=== PATIENT | male | born 1980 | race Caucasian/White ===

== ENCOUNTER 2017-12-04 10:42 | Emergency (ER) | payer SELFPAY ==
[2017-12-04] MEDS ORDERED: ORPHENADRINE CITRATE 30 MG/ML VIAL IM ONE (11:12)
[2017-12-04] MEDS ORDERED: KETOROLAC TROMETHAMINE 30 MG/ML VIAL IM ONE (11:12)
[2017-12-04] MEDS ORDERED: predniSONE 20 MG TABLET PO ONE (11:12)
[2017-12-04] MEDS ORDERED: MORPHINE SULFATE 4 MG/ML SYRG IM ONE (11:12)
[2017-12-04] MEDS ORDERED: KETOROLAC TROMETHAMINE 30 MG/ML VIAL ONE (11:16)
[2017-12-04] MEDS ORDERED: MORPHINE SULFATE 4 MG/ML SYRG ONE (11:16)
[2017-12-04] MEDS ORDERED: ORPHENADRINE CITRATE 30 MG/ML VIAL ONE (11:17)
[2017-12-04] MEDS ORDERED: predniSONE 20 MG TABLET ONE (11:17)
--- NOTE | 2017-12-04 12:22 | ERNOTE ---
Back Pain ER HPI Date of Service: 12/04/17 Presenting Symptoms: hx chronic back pain Time Seen by Provider: 12/04/17 11:02 Source: patient Exam Limitations: no limitations Immunizations: IMMUNIZATION HX Immunizations Up to Date Yes History of Influenza Vaccine No Hx Pneumococcal Vaccination No Allergies/Adverse Reactions: Allergies No Known Allergies Allergy (Unverified 12/04/17 10:59) Home Medications: HOME MEDICATIONS Cyclobenzaprine HCl [Flexeril] 10 mg PO TID PRN #20 tab 12/04/17 [Last Taken Unknown] HYDROcodone/ACETAMINOPHEN [[place] 5-325] 1 tab PO Q8H PRN #12 tab 12/04/17 [Last Taken Unknown] Prednisone 50 mg PO DAILY #4 tablet 12/04/17 [Last Taken Unknown] Narrative: Patient presents to the ED for low back pain. He relates years of low back pain and has had surgery in the past. Last MRI 2007. He relates left back pain that radiates down his right leg to the knee. This is not new, he has had this Sx before. No acute focal N/T/W. gets some occasional tingling for years , nothign acute. No loss of bowel or bladder control. Pain has been exacerbated for 4 days since carrying a 300# piece down stairs. No fall or direct trauma but he relates this as the initiating event worsening his chronic Sx. Pain can be severe. Aching. Worse with movement and bending Timing: Reports: constant Quality/Severity: Reports: severe, aching Location of pain: Reports: other - right low back Activities at Onset: Reports: other - lifting Recent Injury?: Reports: yes Possible Precipitating Factor: Reports: lifting Modifying Factors - (Improves): Reports: other - rest Modifying Factors - (Worsens): Reports: movement to right, movement to left, movement flexion Associated Symptoms: Denies: fever/chills, constipation/incontinence, nausea/ vomiting, problems urinating, difficulty walking, lightheadedness, numbess/ weakness in legs Prior Treament: Denies: recently seen Review of Systems - Review of Systems Constitutional: Absent: fever Respiratory: Absent: shortness of breath Cardiology: Absent: chest pain Gastrointestinal/Abdominal: Absent: abdominal pain Genitourinary: Absent: frequency, pain, dysuria, hematuria Musculoskeletal: Present: See HPI Skin: Absent: rash Neurological: Absent: weakness, tingling - Patient's Past Medical History Patient History - Medical: No pertinent hx Patient History - Cardiac/Respiratory: No pertinent hx Patient History - Cancer: No Hx of Cancer Patient History - Surgical Procedures: Back Surgery Patient History - Other: None - Social History Living Situations: home Abuse History: No History of abuse Psych History: No pertinent hx Smoking Status: Current every day smoker Have you smoked in the past 12 months: Yes Do you dip or chew tobacco: No Alcohol Use: sober Drug Use: none - Immunizations Immunizations Up to Date: Yes Hx Pneumococcal Vaccination: No History of Influenza Vaccine: No Physical Exam - Physical Exam General Appearance: Present: alert, no apparent distress Head Exam: Present: normal inspection, no evidence of injury Eye Exam: Normal inspection: bilateral, PERRL: bilateral Ears, Nose, Throat: Present: normal ENT inspection Neck: Present: normal inspection Respiratory: Present: no respiratory distress Cardiovascular/Chest: Present: regular rate, rhythm Gastrointestinal/Abdominal: Present: normal bowel sounds, nontender, soft Back Exam: Present: other - Muscular tenderness, significant right low back muscualture. No bone or midline tenderness. No other bone tendenress. Absent : CVA tenderness (R), CVA tenderness (L) Extremity Exam: Present: normal inspection, normal range of motion Neurological Exam: Present: alert, normal mood/affect, no motor/sensory deficits , other - Full LE strength. Can stand on toes and heels. Patellar tendon reflexes equal and symmetric. No motor or sensory deficits. No cauda-equina syndrome clinically. Gait stable. Skin Exam: Present: normal color, warm/dry ED Progress - Vital Signs Patient's Vital Signs:: I have reviewed the patient's vital signs. Vital Signs: Vital Signs 12/04/17 12/04/17 12/04/17 10:56 11:22 11:50 Temperature 36.9 C Pulse Rate 77 80 70 Respiratory 15 Rate Blood Pressure 141/77 96/75 115/77 O2 Sat by Pulse 100 98 96 Oximetry - Progress/Reassessment Chief Complaint: Back Pain Progress Note-Subjective: 12/04/17 12:16 Exacerbation of chronic LBP. Hx of same radiculopathy. nothing to suggest acute neuro deficits, cauda equina syndrome or infectious process. i do not fee imaging indicated at this point. I discussed warning signs and reasons to return as well as the need for close f/u. Departure Clinical Impression: Low back pain - Departure Disposition: Home self-care Condition: Stable Instructions: Back Pain, Adult, [id number] Additional Instructions: Rest. Fluids. No driving with pain medications. You need to follow-up with a doctor in within 3 days for a re-check, call for an appointment. Return for increased pain, fever, numbness, tingling, weakness, loss of bowel or bladder control or if your condition worsens or changes in any way. Continue Ibuprofen. Prescriptions: Cyclobenzaprine HCl [Flexeril] 10 mg PO TID PRN #20 tab PRN Reason: MUSCLE SPASMS HYDROcodone/ACETAMINOPHEN [[place] 5-325] 1 tab PO Q8H PRN #12 tab PRN Reason: Pain Prednisone 50 mg PO DAILY #4 tablet
[2017-12-04 12:30] VITALS: BP 135/87
== END 2017-12-04 12:30 | disposition home or self-care (01) ==
LOC: ER 10:42
DX: M54.5 Low back pain (principal); F17.200 Nicotine dependence, unspecified, uncomplicated